=== PATIENT | male | born 1940 | race Caucasian/White ===

== ENCOUNTER 2022-11-09 09:11 | Day surgery (SDC) | payer MEDICARE, BC ==
[~2022-11-09 09:11] MED LIST: Lactated Ringers 1,000 ML IV PRN; Sodium Chloride 0.9% 10 ML Syringe FLUSH PRN
[2022-11-09] MEDS ORDERED: Midazolam 1 MG/ML 2 ML SDV IV ONE (09:12)
[2022-11-09] MEDS ORDERED: fentaNYL 100 MCG/2 ML SDV IV ONE (09:12)
[2022-11-09] MEDS ORDERED: acetaZOLAMIDE 500 MG Cap.ER PO ONE (10:30)
== END 2022-11-09 11:10 | disposition home or self-care (01) ==
LOC: FB.SDS 09:11
PROVIDERS: ATTEND Ophthalmology
DX: H25.013 Cortical age-related cataract, bilateral (principal); H21.81 Floppy iris syndrome; E78.2 Mixed hyperlipidemia; I10 Essential (primary) hypertension; Z79.899 Other long term (current) drug therapy; Z87.891 Personal history of nicotine dependence
CPT/HCPCS: 00142; 66982; A9270; J2250; J3010; J3490; V2632

== ENCOUNTER 2022-12-07 08:06 | Day surgery (SDC) | payer MEDICARE, BC ==
[2022-12-07] MEDS ORDERED: fentaNYL 100 MCG/2 ML SDV IV ONE (08:07)
[2022-12-07] MEDS ORDERED: Sodium Chloride 0.9% 10 ML Syringe IV ONE (08:07)
[2022-12-07] MEDS ORDERED: Midazolam 1 MG/ML 2 ML SDV IV ONE (08:07)
[2022-12-07] MEDS ORDERED: Lactated Ringers 1,000 ML IV PRN (08:30)
[2022-12-07] MEDS ORDERED: Sodium Chloride 0.9% 10 ML Syringe FLUSH PRN (08:30)
[2022-12-07] MEDS ORDERED: acetaZOLAMIDE 500 MG Cap.ER PO ONE (10:30)
== END 2022-12-07 11:08 | disposition home or self-care (01) ==
LOC: FB.SDS 08:06
PROVIDERS: ATTEND Ophthalmology
DX: H25.011 Cortical age-related cataract, right eye (principal); E78.2 Mixed hyperlipidemia; I10 Essential (primary) hypertension; Z90.49 Acquired absence of other specified parts of digestive tract; Z87.891 Personal history of nicotine dependence; Z79.899 Other long term (current) drug therapy
CPT/HCPCS: 00142; A9270-GY; J2250; J3010; J3490; V2632